=== PATIENT | male | born 1990 | race Two or more races ===

== ENCOUNTER 2023-09-10 20:38 | Emergency (ER) | payer SELFPAY ==
[2023-09-10] MEDS: Ketorolac 60 MG/2 ML SDV IM ONE (22:20)
== END 2023-09-10 22:55 | disposition home or self-care (01) ==
LOC: JD.ED 20:38
DX: S29.011A Strain of muscle and tendon of front wall of thorax, initial encounter (principal); X50.0XXA Overexertion from strenuous movement or load, initial encounter
CPT/HCPCS: 96372; 99283; J1885

== ENCOUNTER 2024-01-30 17:19 | Emergency (ER) | payer BC, MEDICAID | END 2024-01-30 18:00 | disposition home or self-care (01) | LOC: JD.ED 17:19 | DX: A08.4 Viral intestinal infection, unspecified (principal); I10 Essential (primary) hypertension; E66.9 Obesity, unspecified; F17.210 Nicotine dependence, cigarettes, uncomplicated; Z68.38 Body mass index [BMI] 38.0-38.9, adult | CPT/HCPCS: 99283 ==

== ENCOUNTER 2024-03-08 15:28 | Emergency (ER) | payer BC ==
[2024-03-08] MEDS: Cyclobenzaprine 10 MG Tab PO ONE (17:21)
== END 2024-03-08 19:06 | disposition home or self-care (01) ==
LOC: JD.ED 15:28
DX: M54.42 Lumbago with sciatica, left side (principal); I10 Essential (primary) hypertension; E66.9 Obesity, unspecified; Z68.38 Body mass index [BMI] 38.0-38.9, adult; Z88.8 Allergy status to other drugs, medicaments and biological substances
CPT/HCPCS: 72100; 99283; A9270; 99284

== ENCOUNTER 2024-05-21 15:33 | Emergency (ER) | payer BC | END 2024-05-21 16:03 | disposition home or self-care (01) | LOC: JD.ED 15:33 | DX: J06.9 Acute upper respiratory infection, unspecified (principal); I10 Essential (primary) hypertension; B97.89 Other viral agents as the cause of diseases classified elsewhere; Z02.79 Encounter for issue of other medical certificate; Z88.8 Allergy status to other drugs, medicaments and biological substances; Z79.899 Other long term (current) drug therapy; E66.9 Obesity, unspecified | CPT/HCPCS: 99282; 99283 ==